=== PATIENT | male | born 1945 | race Two or more races ===

== ENCOUNTER → 2018-12-13 | Outpatient (CLI) | payer MEDICARE, OTHER ==
[~2018-12-13] MED LIST: ALLO100T30 PO; ASPI-496 PO; B CO1TAB14 PO; CARV6.2512 PO; CHOL200074 PO; FOLI0.4T2 PO; SIMV20TA3 PO; TURM538C PO; VALS160T3 PO
[2018-12-13 14:18] LABS: INTERNATIONAL NORMALIZED RATIO 1.02 (0.93-1.1); PROTHROMBIN TIME 10.7 Seconds (9.6-11.5)
[2018-12-13 14:19] LABS: MICROSCOPIC AUTO
[2018-12-13 14:24] LABS: CULTURE INDICATED? NO
[2018-12-13 14:25] LABS: CHLORIDE 109 mmol/L (98-107)
[2018-12-13 14:33] LABS: BASOPHILS # (AUTO) 0.04 x10^3/uL (0-0.1); BASOPHILS % (AUTO) 1 % (0-1); EOSINOPHILS # (AUTO) 0.44 x10^3/uL (0-0.4); EOSINOPHILS % (AUTO) 8 % (1-7); LYMPHOCYTES % (AUTO) 19 % (22-44); MD SCAN; MEAN CORPUSCULAR HGB CONC 33.5 g/dL (33.2-36.2); MEAN CORPUSCULAR VOLUME 95.5 fL (81-97); MEAN PLATELET VOLUME 7.7 fL (7.4-10.4); MONOCYTES # (AUTO) 0.54 x10^3/uL (0.2-0.8); MONOCYTES % (AUTO) 9 % (2-9); NEUTROPHILS # (AUTO) 3.65 x10^3/uL (1.8-6.8); NEUTROPHILS % (AUTO) 63 % (42-75); PLATELET COUNT 207 x10^3/uL (130-400); RED BLOOD COUNT 5.67 x10^6/uL (4.38-5.82); RED CELL DISTRIBUTION WIDTH 13.6 % (9.4-14.8)
[2018-12-13 14:37] LABS: ALANINE AMINOTRANSFERASE 34 U/L (12-78); ALBUMIN 3.9 g/dL (3.4-5.0); ALKALINE PHOSPHATASE 78 U/L (45-117); ANION GAP 11 mmol/L (5-15); BILIRUBIN,TOTAL 0.4 mg/dL (0.2-1.0); CALCIUM 9.8 mg/dL (8.5-10.1); CREATININE 1.29 mg/dL (0.7-1.3)
== END | disposition home or self-care (01) ==
LOC: STAR 12:52
PROVIDERS: ATTEND Neurological Surgery
DX: Z01.818 Encounter for other preprocedural examination (principal); M48.02 Spinal stenosis, cervical region; R94.31 Abnormal electrocardiogram [ECG] [EKG]
CPT/HCPCS: 36415; 71046; 80053; 81001; 85025; 85610; 85730; 93005

== ENCOUNTER 2018-12-26 10:34 | Observation (INO) | payer MEDICARE, OTHER ==
[~2018-12-26] VITALS: Ht 175.3 cm; Wt 100.4 kg
[~2018-12-26 10:34] MED LIST changes: +BACITRACIN 50,000 UNIT ONE; +BUPIVACAINE/PF 0.5% ONE
[2018-12-26] MEDS ORDERED: FLUT1DIS3 INH (11:20)
[2018-12-26] MEDS ORDERED: ACET-1600 PO (11:20)
[2018-12-26] MEDS ORDERED: ACETAMINOPHEN 500 MG TABLET PO STA (11:24)
[2018-12-26] MEDS ORDERED: DIAZEPAM 5 MG TABLET PO STA (11:24)
[2018-12-26] MEDS ORDERED: SCOPOLAMINE PATCH, 1.5MG PATCH.TD72 TD STA (11:24)
[2018-12-26] MEDS ORDERED: GABAPENTIN 300 MG CAPSULE PO STA (11:24)
[2018-12-26] MEDS ORDERED: BUPIVACAINE/PF 0.5% ONE (11:55)
[2018-12-26] MEDS: LACTATED RINGERS 1,000 ML IV SCH ×2 (12:04→17:58)
[2018-12-26] MEDS ORDERED: ROCURONIUM 10MG/ML,5ML ONE (14:14)
[2018-12-26] MEDS ORDERED: SUCCINYLCHOLINE 20 MG/ML, 10ML ONE (14:14)
[2018-12-26] MEDS ORDERED: DEXAMETHASONE 4 MG/ML, 1ML ONE ×2 (14:14→15:51)
[2018-12-26] MEDS ORDERED: FENTANYL PF 250 MCG/5ML ONE (14:14)
[2018-12-26] MEDS ORDERED: PROPOFOL 10 MG/ML, 20ML ONE ×2 (14:14→14:24)
[2018-12-26] MEDS ORDERED: CEFAZOLIN 1,000 MG ONE (14:17)
[2018-12-26] MEDS ORDERED: EPHEDRINE 50 MG/ML, 1ML ONE (14:24)
[2018-12-26] MEDS ORDERED: THROMBIN 20,000 UNIT VIAL TP ONE ×2 (14:57→15:14)
[2018-12-26] MEDS ORDERED: MEPERIDINE/PF 25MG/0.5ML IVPush PRN (15:00)
[2018-12-26] MEDS ORDERED: hydrALAzine 20 MG/ML, 1ML IV PRN (15:00)
[2018-12-26] MEDS ORDERED: PROMETHAZINE 12.5 MG SUPP PR PRN (15:00)
[2018-12-26] MEDS ORDERED: ALBUTEROL SULFATE 2.5 MG/3 ML NPPB PRN (15:00)
[2018-12-26] MEDS ORDERED: DIAZEPAM 5 MG/ML, 2ML IVPush PRN (15:00)
[2018-12-26] MEDS ORDERED: HYDROmorphone 2 MG/ML, 1ML IVPush PRN (15:00)
[2018-12-26] MEDS ORDERED: LABETALOL 5MG/ML, 20ML IV PRN (15:00)
[2018-12-26] MEDS ORDERED: MORPHINE SULFATE 4 MG/ML, 1ML IVPush PRN (15:00)
[2018-12-26] MEDS ORDERED: ONDANSETRON 2MG/ML, 2ML IV PRN ×2 (15:00→19:00)
[2018-12-26] MEDS ORDERED: HALOPERIDOL 5 MG/ML IV PRN (15:00)
[2018-12-26] MEDS ORDERED: EPHEDRINE 50 MG/ML, 1ML IVPush PRN (15:00)
[2018-12-26] MEDS ORDERED: PROMETHAZINE 25 MG/ML, 1ML IV PRN (15:00)
[2018-12-26] MEDS ORDERED: MIDAZOLAM 1 MG/ML, 2ML IV PRN (15:00)
[2018-12-26] MEDS ORDERED: FENTANYL PF 100 MCG/2ML IV PRN (15:00)
[2018-12-26] MEDS ORDERED: ONDANSETRON ODT 8 MG PO PRN (15:00)
[2018-12-26] MEDS ORDERED: OXYcodone 5 MG/5 ML ORAL.SOL UDC PO PRN (15:00)
[2018-12-26] MEDS ORDERED: BUPIVACAINE/PF 0.25% ONE (15:14)
[2018-12-26] MEDS ORDERED: ONDANSETRON 2MG/ML, 2ML ONE ×2 (15:51)
[2018-12-26] MEDS ORDERED: OXYcodone 5 MG/5 ML ORAL.SOL UDC ONE (16:42)
[2018-12-26 18:24] VITALS: BP 144/84
[2018-12-26] MEDS: LABETALOL 5MG/ML, 20ML IV SCH (19:00)
[2018-12-26] MEDS ORDERED: PROMETHAZINE 25 MG/ML, 1ML IM PRN (19:00)
[2018-12-26] MEDS ORDERED: DIPHENHYDRAMINE 50 MG/ML, 1ML IVPush PRN (19:00)
[2018-12-26] MEDS ORDERED: DIPHENHYDRAMINE 50 MG CAPSULE PO PRN (19:00)
[2018-12-26] MEDS ORDERED: OXYcodone/APAP 5/325MG TABLET PO PRN (19:00)
[2018-12-26] MEDS ORDERED: HYDROcodone/APAP 5/325 TABLET PO PRN (19:00)
[2018-12-26] MEDS ORDERED: BISACODYL 10 MG SUPP PR PRN (19:00)
[2018-12-26] MEDS ORDERED: METHOCARBAMOL 750 MG TABLET PO PRN (19:00)
[2018-12-26] MEDS ORDERED: MAGNESIUM HYDROXIDE 8%, 30ML UDC PO PRN (19:00)
[2018-12-26] MEDS ORDERED: DIPHENHYDRAMINE 50 MG/ML, 1ML IM PRN (19:00)
[2018-12-26] MEDS: ACETAMINOPHEN 500 MG TABLET PO SCH (20:54)
[2018-12-26] MEDS ORDERED: SIMVASTATIN 20 MG TABLET PO SCH (21:00)
[2018-12-26] MEDS ORDERED: ZOLPIDEM 5MG TABLET PO PRN (21:00)
[2018-12-26] MEDS: CEFAZOLIN PMX 1GM/50ML 50 ML IVPB SCH (22:06)
[2018-12-26] MEDS: NS + 20MEQ KCL 1,000 ML IV SCH (22:06)
[2018-12-26 23:36] VITALS: BP 119/76
[2018-12-27] MEDS: LABETALOL 5MG/ML, 20ML IV SCH (02:21)
[2018-12-27 03:58] VITALS: BP 111/71
[2018-12-27] MEDS ORDERED: CARVEDILOL 6.25 MG TABLET PO SCH (06:00)
[2018-12-27] MEDS: CEFAZOLIN PMX 1GM/50ML 50 ML IVPB SCH (07:19)
[2018-12-27 07:46] VITALS: BP 111/69
[2018-12-27 08:10] VITALS: BP 104/60
[2018-12-27] MEDS: NS + 20MEQ KCL 1,000 ML IV SCH (08:30)
[2018-12-27] MEDS ORDERED: CEPH-368 PO (08:32)
[2018-12-27] MEDS ORDERED: METH750T87 PO (08:33)
[2018-12-27] MEDS ORDERED: HYDR-3240 PO (08:34)
[2018-12-27] MEDS: ACETAMINOPHEN 500 MG TABLET PO SCH (08:35)
[2018-12-27] MEDS ORDERED: VALSARTAN 160 MG TABLET PO SCH (09:00)
[2018-12-27] MEDS ORDERED: MULTIVITS,STRESS FORMULA 1 TABLET PO SCH (09:00)
[2018-12-27] MEDS ORDERED: ADVAIR 250-50 DISKUS INH SCH (09:00)
[2018-12-27] MEDS ORDERED: FOLIC ACID 1 MG TABLET PO SCH (09:00)
[2018-12-27] MEDS ORDERED: ALLOPURINOL 100 MG TABLET PO SCH (09:00)
[2018-12-27] MEDS ORDERED: SENNA/DOCUSATE TABLET PO SCH (09:00)
[2018-12-27] MEDS ORDERED: ENOXAPARIN 40 MG/0.4 ML SQ SCH (14:00)
== END 2018-12-27 09:16 | disposition home or self-care (01) ==
LOC: OUT 10:34 → 4NOR 18:00 → OUT 21:41 → 4NOR 21:42 → DCLOUNGE 12-27 08:51
PROVIDERS: ADMIT Neurological Surgery; ATTEND Neurological Surgery
DX: M47.816 Spondylosis without myelopathy or radiculopathy, lumbar region (principal); M48.062 Spinal stenosis, lumbar region with neurogenic claudication; I25.119 Atherosclerotic heart disease of native coronary artery with unspecified angina pectoris; J45.909 Unspecified asthma, uncomplicated; M19.90 Unspecified osteoarthritis, unspecified site; Z79.899 Other long term (current) drug therapy
CPT/HCPCS: 63047; 72100; 72120; 96365; 96366; 97161; C1729; G0378; J0330; J0690; J1100; J2405; J2704; J3010; J3480; J3490; J7120; S0020